=== PATIENT | male | born 1970 ===

== ENCOUNTER 2017-12-21 21:38 | Observation (INO) | payer MEDICAID ==
--- NOTE | 2017-12-21 22:23 | ED PDOC ---
HPI: Chest Pain Time Seen by Provider: 12/21/17 22:07 Chief Complaint (Nursing): Chest Pain History Per: Patient Onset/Duration Of Symptoms: Hrs (4) Current Symptoms Are (Timing): Intermittent Episodes Severity: Mild Quality: Tightness Associated Symptoms: denies: Nausea, Dyspnea Exacerbating Factors: None Additional Complaint(s): Intermittent chest tightness since 6 PM tonight. Non-radiating. Not assoc with SOB. denies cough or fever. denies abd pain or vomiting Past Medical History Vital Signs: Last Vital Signs Temp 98.2 F 12/21/17 21:52 Pulse 89 12/21/17 21:52 Resp 16 12/21/17 21:52 BP 156/95 H 12/21/17 21:52 Pulse Ox 96 12/21/17 22:23 - Medical History PMH: Diabetes, HTN, Kidney Stones, Pancreatitis (Chronic), Chronic Kidney Disease - Surgical History Surgical History: Cholecystectomy (4 years ago) - Family History Family History: States: Unknown Family Hx - Immunization History Hx Tetanus Toxoid Vaccination: No Hx Influenza Vaccination: No Hx Pneumococcal Vaccination: No - Home Medications Home Medications: Ambulatory Orders Medication Instructions Recorded amLODIPine [Norvasc] 10 mg PO DAILY 10/05/15 Unknown Bp Med 07/15/17 Phenobarb/Hyoscy/Atropine/Scop 16.2 mg PO Q6 #10 tablet 07/16/17 [ Tablet] - Allergies Allergies/Adverse Reactions: Allergies Allergy/AdvReac Type Severity Reaction Status Date / Time No Known Allergies Allergy Verified 12/21/17 21:52 Review of Systems ROS Statement: Except As Marked, All Systems Reviewed And Found Negative Cardiovascular: Positive for: Chest Pain Physical Exam - Reviewed Nursing Documentation Reviewed: Yes Vital Signs Reviewed: Yes - Physical Exam Appears: Positive for: Non-toxic, No Acute Distress Head Exam: Positive for: ATRAUMATIC, NORMAL INSPECTION, NORMOCEPHALIC Skin: Positive for: Normal Color, Warm, DRY Eye Exam: Positive for: EOMI, Normal appearance, PERRL ENT: Positive for: Normal ENT Inspection Neck: Positive for: Normal, Painless ROM Cardiovascular/Chest: Positive for: Regular Rate, Rhythm, Chest Non Tender Respiratory: Positive for: CNT, Normal Breath Sounds Gastrointestinal/Abdominal: Positive for: Normal Exam, Bowel Sounds, Soft. Negative for: Tenderness Back: Positive for: Normal Inspection Extremity: Positive for: Normal ROM Neurologic/Psych: Positive for: Alert, Oriented - Laboratory Results Result Diagrams: 12/21/17 23:03 12/21/17 23:03 - ECG O2 Sat by Pulse Oximetry: 96 Disposition - Clinical Impression Clinical Impression: Chest pain, Pancreatitis - Patient ED Disposition Is Patient to be Admitted: No - Disposition Disposition Time: 00:22 Condition: FAIR Forms: [facility] (Cit[place]) - Pt Status Changed To: Hospital Disposition Of: Observation - POA Present On Arrival: None
[2017-12-21 23:08] LABS: BASO # 0.1 K/uL (0.0-0.2); BASO % 1.2 % (0.0-2.0); EOS # 0.2 K/uL (0.0-0.7); EOS % 3.2 % (0.0-4.0); HEMOGLOBIN 12.9 g/dL (12.0-18.0); LYMPH # 1.7 K/uL (1.0-4.3); LYMPH % 27.5 % (20.0-40.0); MEAN CELL VOLUME 84.4 fl (80.0-94.0); MEAN CORPUSCULAR HEMOGLOBIN 27.8 pg (27.0-31.0); MEAN PLATELET VOLUME 8.3 fl (7.2-11.7); MONO # 0.5 K/uL (0.0-0.8); MONO % 8.2 % (0.0-10.0); NEUT # 3.7 K/uL (1.8-7.0); NEUT % 59.9 % (50.0-75.0); NRBC % 0.3 % (0.0-0.0); RBC 4.63 Mil/uL (4.40-5.90); RED CELL DISTRIBUTION WIDTH 14.7 % (11.5-14.5); WHITE BLOOD COUNT 6.2 K/uL (4.8-10.8)
[2017-12-21 23:23] LABS: ALB/GLOB RATIO 1.2 (1.0-2.1); ALBUMIN 3.6 g/dL (3.5-5.0); CALCIUM 8.8 mg/dL (8.4-10.2); GFR AFRICAN-AMERICAN > 60; GFR NON-AFRICAN AMERICAN > 60; LIPASE 321 U/L (23-300)
[2017-12-21 23:25] LABS: ALT/SGPT 51 U/L (21-72); AST/SGOT 34 U/L (17-59); BLOOD UREA NITROGEN 19 mg/dl (9-20)
[2017-12-22] MEDS: Lactated Ringer's 1,000 ML IV SCH ×2 (01:08→09:00)
[2017-12-22 06:30] LABS: ALB/GLOB RATIO 1.3 (1.0-2.1); ALBUMIN 3.8 g/dL (3.5-5.0); ALT/SGPT 52 U/L (21-72); AMYLASE 88 U/L (30-110); AST/SGOT 30 U/L (17-59); BLOOD UREA NITROGEN 15 mg/dl (9-20); CALCIUM 8.8 mg/dL (8.4-10.2); GFR AFRICAN-AMERICAN > 60; GFR NON-AFRICAN AMERICAN > 60; LIPASE 364 U/L (23-300)
[2017-12-22 07:33] LABS: HEMOGLOBIN 13.2 g/dL (12.0-18.0); MEAN CELL VOLUME 85.4 fl (80.0-94.0); MEAN CORPUSCULAR HEMOGLOBIN 27.1 pg (27.0-31.0); MEAN CORPUSCULAR HGB CONC 31.8 g/dL (33.0-37.0); RBC 4.86 Mil/uL (4.40-5.90); RED CELL DISTRIBUTION WIDTH 14.3 % (11.5-14.5); WHITE BLOOD COUNT 4.9 K/uL (4.8-10.8)
--- NOTE | 2017-12-22 08:31 | CARD ---
APPROVED REPORT EKG Measurement Heart [id number] <Conclusion> Normal sinus rhythm Left axis deviation Cannot rule out Anterior infarct, age undetermined Abnormal ECG
[2017-12-22 09:56] VITALS: RESP 14; TEMP 98
[2017-12-22 10:33] VITALS: BP 152/88; PULSE 77; O2SAT 100
[2017-12-22] MEDS ORDERED: Pantoprazole 40 mg EC Tab PO SCH (14:00)
[2017-12-22] MEDS ORDERED: Sodium Chloride 0.9% 1,000 ML IV SCH (14:00)
--- NOTE | 2017-12-22 19:25 | CP.PCM.HP ---
History of Present Illness - History of Present Illness History of Present Illness: 47 yr old M presented to ED with complaint of intermittent chest tightness, SOB and nausea x 1 day. PMHx includes HTN, kidney stones and pancreatitis. Denies radiating pain to extremities, cough, fever, abdominal pain or vomiting. Reports adherence with his HTN medication, denies Etoh or drug use. Patient states he lives in the [place], [place] and was in [place] visiting family when his symptoms began and worsened. PMD: Rosie Velázquez ([place], [place]) PMHx: HTN, kidney stones and pancreatitis SurgHx: cholecystectomy -2014 FMHx: mother at 65-complications from emphysema; father is 68-medical hx unknown, brother is 40 and healthy SocHx: denies tobacco/Etoh or drugs; lives with in the [place], works as a jefferson Medications: see medication reconciliation (Amlodipine) Allergies: NKDA Present on Admission - Present on Admission Any Indicators Present on Admission: No History of DVT/PE: No History of Uncontrolled Diabetes: No Urinary Catheter: No Decubitus Ulcer Present: No History Surgical Site Infection Following: None Review of Systems - Review of Systems All systems: reviewed and no additional remarkable complaints except (for what is mentioned in the HPI) - Constitutional Constitutional: absent: Chills, Fever - EENT Eyes: absent: Change in Vision Ears: absent: Dizziness Nose/Mouth/Throat: absent: Nasal Congestion - Cardiovascular Cardiovascular: Chest Pain, Dyspnea - Respiratory Respiratory: absent: Cough, Hemoptysis - Gastrointestinal Gastrointestinal: Nausea. absent: Abdominal Pain, Vomiting - Genitourinary Genitourinary: absent: Difficulty Urinating, Dysuria - Musculoskeletal Musculoskeletal: absent: Arthralgias - Integumentary Integumentary: absent: Bleeding Lesions - Neurological Neurological: absent: Confusion, Focal Weakness - Psychiatric Psychiatric: absent: Anxiety - Endocrine Endocrine: absent: Polydipsia, Polyuria - Hematologic/Lymphatic Hematologic: absent: Easy Bleeding, Easy Bruising Past Patient History - Infectious Disease Hx of Infectious Diseases: None - Past Social History Smoking Status: Never Smoked - CARDIAC Hx Hypertension: Yes - PULMONARY Hx Respiratory Disorders: No - NEUROLOGICAL Hx Neurological Disorder: No - HEENT Hx HEENT Problems: No - RENAL Hx Chronic Kidney Disease: Yes Hx Kidney Stones: Yes - ENDOCRINE/METABOLIC Hx Endocrine Disorders: Yes Other/Comment: Pancreatitis. PRE DIABETES - HEMATOLOGICAL/ONCOLOGICAL Hx Blood Disorders: No - INTEGUMENTARY Hx Dermatological Problems: No - MUSCULOSKELETAL/RHEUMATOLOGICAL Hx Musculoskeletal Disorders: No - GASTROINTESTINAL Hx Pancreatitis: Yes (Chronic) - GENITOURINARY/GYNECOLOGICAL Hx Genitourinary Disorders: Yes Other/Comment: renal stone - PSYCHIATRIC Hx Psychophysiologic Disorder: No Hx Substance Use: No (DENIED) - SURGICAL HISTORY Hx Cholecystectomy: Yes (4 years ago) - ANESTHESIA Hx Anesthesia: Yes Hx Anesthesia Reactions: No Meds Allergies/Adverse Reactions: Allergies Allergy/AdvReac Type Severity Reaction Status Date / Time No Known Allergies Allergy Verified 12/21/17 21:52 Physical Exam - Constitutional Appears: No Acute Distress (obese), Unkempt (bromhidrosis) - Head Exam Head Exam: ATRAUMATIC, NORMOCEPHALIC - Eye Exam Eye Exam: EOMI, PERRL - ENT Exam ENT Exam: Mucous Membranes Moist - Neck Exam Neck exam: Positive for: Full Rom - Respiratory Exam Respiratory Exam: Clear to Auscultation Bilateral, NORMAL BREATHING PATTERN - Cardiovascular Exam Cardiovascular Exam: REGULAR RHYTHM, +S1, +S2 - GI/Abdominal Exam GI & Abdominal Exam: Normal Bowel Sounds, Soft (obese). absent: Tenderness - Extremities Exam Extremities exam: Positive for: full ROM, pedal edema (trace, with bilateral venous stasis changes). Negative for: calf tenderness - Neurological Exam Neurological exam: Alert, CN II-XII Intact, Oriented x3 - Psychiatric Exam Psychiatric exam: Normal Affect, Normal Mood - Skin Skin Exam: Dry, Intact, Normal Color, Warm Results - Vital Signs Recent Vital Signs: Last Vital Signs Temp 98.0 F 12/22/17 07:35 Pulse 77 12/22/17 10:32 Resp 14 12/22/17 10:32 BP 152/88 H 12/22/17 10:32 Pulse Ox 100 12/22/17 10:32 - Labs Result Diagrams: 12/22/17 07:17 12/22/17 05:30 Labs: Laboratory Results - last 24 hr 12/21/17 12/21/17 12/22/17 23:03 23:03 05:30 WBC 6.2 RBC 4.63 Hgb 12.9 Hct 39.1 MCV 84.4 MCH 27.8 MCHC 33.0 RDW 14.7 H Plt Count 193 MPV 8.3 Neut % (Auto) 59.9 Lymph % (Auto) 27.5 Cataño % (Auto) 8.2 Eos % (Auto) 3.2 Baso % (Auto) 1.2 Neut # 3.7 Lymph # 1.7 Cataño # 0.5 Eos # 0.2 Baso # 0.1 Sodium 140 143 Potassium 4.0 3.9 Chloride 106 106 Carbon Dioxide 25 26 Anion Gap 13 15 BUN 19 15 Creatinine 1.2 0.9 Est GFR ( Amer) > 60 > 60 Est GFR (Non-Af Amer) > 60 > 60 Random Glucose 95 89 Calcium 8.8 8.8 Total Bilirubin 1.1 1.4 H AST 34 30 ALT 51 52 Alkaline Phosphatase 40 45 Troponin I < 0.0120 Total Protein 6.6 6.8 Albumin 3.6 3.8 Globulin 3.0 3.0 Albumin/Globulin Ratio 1.2 1.3 Amylase 88 Lipase 321 H 364 H Vitamin B12 424 TSH 3rd Generation 1.26 12/22/17 12/22/17 07:17 07:17 WBC 4.9 RBC 4.86 Hgb 13.2 Hct 41.5 MCV 85.4 MCH 27.1 MCHC 31.8 L RDW 14.3 Plt Count 173 MPV Neut % (Auto) Lymph % (Auto) Cataño % (Auto) Eos % (Auto) Baso % (Auto) Neut # Lymph # Cataño # Eos # Baso # Sodium Potassium Chloride Carbon Dioxide Anion Gap BUN Creatinine Est GFR ( Amer) Est GFR (Non-Af Amer) Random Glucose Calcium Total Bilirubin AST ALT Alkaline Phosphatase Troponin I 0.0140 Total Protein Albumin Globulin Albumin/Globulin Ratio Amylase Lipase Vitamin B12 TSH 3rd Generation Assessment & Plan - Assessment and Plan (Free Text) Assessment: 47 yr old M admitted for chest pain and pancreatitis. -Admit to telemetry -NPO, IV fluids, IV PPI, f/u troponins -advance to regular diet as tolerated -f/u repeat lipase, CBC, urine drug screen, folate -continue home medications -DVT prophylaxis-Lovenox 40mg SC QD - Date & Time Date: 12/22/17 Time: 09:00
[2017-12-22 22:30] LABS: FOLATE > 20.0 ng/mL
[2017-12-23] MEDS ORDERED: Enoxaparin 40 mg Syringe SC SCH (09:00)
== END 2017-12-22 14:40 | disposition left against medical advice (07) ==
LOC: H.ER 21:38 → H.ERHOLD 12-22 00:21
PROVIDERS: ADMIT Internal Medicine; ATTEND Internal Medicine
DX: R07.9 Chest pain, unspecified (principal); K86.1 Other chronic pancreatitis; I10 Essential (primary) hypertension; Z87.442 Personal history of urinary calculi
CPT/HCPCS: 71046; 80053; 82150; 82607; 82746; 83690; 84443; 84484; 85025; 85027; 93005; 96360; 96361; 99284; G0378; J7120

== ENCOUNTER 2017-12-29 03:12 | Emergency (ER) | payer MEDICAID ==
[2017-12-29 03:21] VITALS: BMI 35.8
[2017-12-29 03:25] VITALS: BP 190/114; PULSE 68; RESP 16; TEMP 97.8; O2SAT 98
[2017-12-29] MEDS ORDERED: Sodium Chloride 0.9% 1,000 ML IV STA (03:42)
[2017-12-29 04:01] LABS: BASO % 0.2 % (0.0-2.0); EOS # 0.1 K/uL (0.0-0.7); EOS % 2.9 % (0.0-4.0); HEMOGLOBIN 13.6 g/dL (12.0-18.0); LYMPH # 1.6 K/uL (1.0-4.3); LYMPH % 32.1 % (20.0-40.0); MEAN CELL VOLUME 84.8 fl (80.0-94.0); MEAN CORPUSCULAR HEMOGLOBIN 28.1 pg (27.0-31.0); MEAN CORPUSCULAR HGB CONC 33.1 g/dL (33.0-37.0); MEAN PLATELET VOLUME 7.9 fl (7.2-11.7); MONO # 0.5 K/uL (0.0-0.8); MONO % 10.6 % (0.0-10.0); NEUT # 2.7 K/uL (1.8-7.0); NEUT % 54.2 % (50.0-75.0); NRBC % 0.1 % (0.0-0.0); RBC 4.84 Mil/uL (4.40-5.90); RED CELL DISTRIBUTION WIDTH 14.6 % (11.5-14.5)
--- NOTE | 2017-12-29 04:06 | ED PDOC ---
HPI: Abdomen Time Seen by Provider: 12/29/17 03:26 Chief Complaint (Nursing): Abdominal Pain Chief Complaint (Provider): abdominal pain History Per: Patient History/Exam Limitations: no limitations Onset/Duration Of Symptoms: Days (2) Current Symptoms Are (Timing): Intermittent Episodes Severity: Moderate Location Of Pain/Discomfort: LLQ, Periumbilical Quality Of Discomfort: Sharp Associated Symptoms: Nausea, Loss Of Appetite, Back Pain. denies: Vomiting, Diarrhea Exacerbating Factors: None Alleviating Factors: None Last Bowel Movement: Today Additional Complaint(s): 47yo male hx chronic pancreatitis represents c/o lower abd pain associated w nausea and loss appetite. Denies melena, weakness, fever, diarrhea or chest pain. Prior records reveal admission last week for which he left AMA. Past Medical History Reviewed: Historical Data, Nursing Documentation, Vital Signs Vital Signs: Last Vital Signs Temp 97.8 F 12/29/17 03:22 Pulse 68 12/29/17 03:22 Resp 16 12/29/17 03:22 BP 190/114 H 12/29/17 03:22 Pulse Ox 98 12/29/17 05:37 - Medical History PMH: Diabetes, HTN, Kidney Stones, Pancreatitis (Chronic), Chronic Kidney Disease - Surgical History Surgical History: Cholecystectomy (4 years ago) - Family History Family History: States: Unknown Family Hx - Living Arrangements Living Arrangements: With Family (from the [place], visits family in [place]) - Social History Current smoker - smoking cessation education provided: Yes Alcohol: None - Immunization History Hx Tetanus Toxoid Vaccination: No Hx Influenza Vaccination: No Hx Pneumococcal Vaccination: No - Home Medications Home Medications: Ambulatory Orders Medication Instructions Recorded amLODIPine [Norvasc] 10 mg PO DAILY 10/05/15 Ibuprofen [Motrin Tab] 600 mg PO Q6 PRN #15 tab 12/29/17 - Allergies Allergies/Adverse Reactions: Allergies Allergy/AdvReac Type Severity Reaction Status Date / Time No Known Allergies Allergy Verified 12/29/17 03:21 Review of Systems Constitutional: Negative for: Fever Cardiovascular: Negative for: Chest Pain Gastrointestinal: Positive for: Nausea, Abdominal Pain. Negative for: Constipation, Melena Genitourinary Male: Negative for: Dysuria Musculoskeletal: Positive for: Back Pain. Negative for: Neck Pain, Leg Pain Skin: Negative for: Rash, Lesions, Jaundice Neurological: Negative for: Weakness, Headache, Other Psych: Negative for: Suicidal ideation Physical Exam - Reviewed Nursing Documentation Reviewed: Yes Vital Signs Reviewed: Yes - Physical Exam Appears: Positive for: Well, Non-toxic, No Acute Distress Head Exam: Positive for: ATRAUMATIC, NORMAL INSPECTION, NORMOCEPHALIC Skin: Positive for: Normal Color, Warm, DRY Eye Exam: Positive for: EOMI, Normal appearance, PERRL ENT: Positive for: Normal ENT Inspection Neck: Positive for: Normal, Painless ROM Cardiovascular/Chest: Positive for: Regular Rate, Rhythm Respiratory: Positive for: CNT, Normal Breath Sounds Gastrointestinal/Abdominal: Positive for: Bowel Sounds, Soft, Tenderness (mild LLQ tenderness). Negative for: Guarding Back: Positive for: Normal Inspection Extremity: Positive for: Normal ROM Neurologic/Psych: Positive for: Alert, Oriented - Laboratory Results Result Diagrams: 12/29/17 03:50 12/29/17 03:50 - ECG O2 Sat by Pulse Oximetry: 98 Medical Decision Making Medical Decision Making: workup for abd pain w hx pancreatic stent and chronic pancreatitis initiated labs, CT abd pelv, toradol for pain initiated labs reviewed, mild elev lipase, patient states lipase will range between 200- 1000 normally. WBC normal. LFTs unremarkable/ Bones/joints: No acute fracture. No dislocation. Soft tissues: Right inguinal hernia containing fat. Vasculature: Unremarkable. No abdominal aortic aneurysm. Lymph nodes: Unremarkable. No enlarged lymph nodes. IMPRESSION: No acute findings. Thank you for allowing us to participate in the care of your patient. Dictated and Authenticated by: Michael Small MD Disposition - Clinical Impression Clinical Impression: Chronic abdominal pain - Patient ED Disposition Is Patient to be Admitted: No Counseled Patient/Family Regarding: Studies Performed, Diagnosis, Need For Followup, Rx Given - Disposition Referrals: Jonathan Orozco MD [Medical Doctor] - Disposition: Routine/Home Disposition Time: 05:00 Condition: STABLE Prescriptions: Ibuprofen [Motrin Tab] 600 mg PO Q6 PRN #15 tab PRN Reason: Pain, Moderate (4-7) Instructions: Acute Abdominal Pain (ED) Forms: [employer] (E[place]ian)
[2017-12-29 04:14] LABS: ALB/GLOB RATIO 1.3 (1.0-2.1); ALBUMIN 3.8 g/dL (3.5-5.0); ALT/SGPT 48 U/L (21-72); AST/SGOT 23 U/L (17-59); BLOOD UREA NITROGEN 17 mg/dl (9-20); GFR AFRICAN-AMERICAN > 60; GFR NON-AFRICAN AMERICAN > 60; LIPASE 954 U/L (23-300)
[2017-12-29] MEDS ORDERED: Sodium Chloride 0.9% 50 ML IV ONE (05:01)
[2017-12-29] MEDS ORDERED: Iohexol 300 100 ML IJ ONE (05:02)
--- NOTE | 2017-12-29 09:38 | CT ---
PROCEDURE: CT Abdomen and Pelvis with contrast HISTORY: LLQ and central abd pain, hx pancreatic duct COMPARISON: None. TECHNIQUE: Contrast dose: 95 mL of Omnipaque 300. Axial and reformatted coronal and sagittal CT images of the abdomen and pelvis were obtained after IV contrast administration. Radiation dose: Total exam DLP = 1028.42 mGy-cm. This CT exam was performed using one or more of the following dose reduction techniques: Automated exposure control, adjustment of the mA and/or kV according to patient size, and/or use of iterative reconstruction technique. FINDINGS: LOWER THORAX: Mild lung bases atelectasis noted. LIVER: Mild hepatomegaly and mild hepatic steatosis. GALLBLADDER AND BILE DUCTS: S/p cholecystectomy PANCREAS: Unremarkable. No gross lesion or ductal dilatation. SPLEEN: Unremarkable. ADRENALS: Unremarkable. No mass. KIDNEYS AND URETERS: The left kidney is small in size. There is compensated enlarged right kidney. No evidence of hydronephrosis. VASCULATURE: Unremarkable. No aortic aneurysm. BOWEL: Few left-sided diverticulosis noted without evidence of diverticulitis. No evidence of bowel obstruction APPENDIX: Normal appendix. PERITONEUM: Unremarkable. No free fluid. No free air. LYMPH NODES: Unremarkable. No enlarged lymph nodes. BLADDER: Unremarkable. REPRODUCTIVE: Unremarkable. BONES: No acute fracture. OTHER FINDINGS: 5.5 centimeter fat containing right inguinal hernia noted. IMPRESSION: Few colonic diverticulosis without evidence of diverticulitis. No evidence of pancreatitis or appendicitis. Status post cholecystectomy. Mild hepatomegaly and mild hepatic steatosis. Small size left kidney. 5.5 centimeter fat containing right inguinal hernia.
== END 2017-12-29 07:13 | disposition home or self-care (01) ==
LOC: H.ER 03:12
DX: R10.9 Unspecified abdominal pain (principal); G89.29 Other chronic pain; F17.200 Nicotine dependence, unspecified, uncomplicated; I12.9 Hypertensive chronic kidney disease with stage 1 through stage 4 chronic kidney disease, or unspecified chronic kidney disease; N18.9 Chronic kidney disease, unspecified; Z87.19 Personal history of other diseases of the digestive system; Z87.442 Personal history of urinary calculi; Z90.49 Acquired absence of other specified parts of digestive tract
CPT/HCPCS: 74177; 80053; 80320; 83690; 85025; 96360; 99284; J1885; J7040; Q9967